=== PATIENT | female | born 1995 | race Caucasian/White ===

== ENCOUNTER 2018-06-04 14:55 | Emergency (ER) | payer OTHER ==
[~2018-06-04] VITALS: Ht 167.6 cm; Wt 73.6 kg
[2018-06-04] MEDS ORDERED: ONDANSETRON 2MG/ML, 2ML IVPush ONE (15:30)
[2018-06-04] MEDS ORDERED: SODIUM CHLORIDE FLUSH 10ML SYR IVF ONE (15:30)
[2018-06-04] MEDS ORDERED: MAALOX/HYOSCYAMINE/LIDOCAINE 45 ML BTL PO ONE (15:30)
[2018-06-04] MEDS ORDERED: FAMOTIDINE 20 MG/2 ML IVP ONE (15:30)
[2018-06-04] MEDS ORDERED: SODIUM CHLORIDE 0.9% 1,000ML IVBOLUS ONE ×2 (15:30→17:30)
[2018-06-04 15:42] LABS: ALANINE AMINOTRANSFERASE 18 U/L (12-78); ALBUMIN 3.3 g/dL (3.4-5.0); ANION GAP 7 mmol/L (5-15); CALCIUM 8.5 mg/dL (8.5-10.1); CHLORIDE 110 mmol/L (98-107); CREATININE 0.89 mg/dL (0.55-1.02)
[2018-06-04 15:47] LABS: ALKALINE PHOSPHATASE 47 U/L (45-117); BILIRUBIN,TOTAL 0.6 mg/dL (0.2-1.0); TOTAL PROTEIN 7.2 g/dL (6.4-8.2)
[2018-06-04] MEDS ORDERED: ONDANSETRON 2MG/ML, 2ML ONE (15:52)
[2018-06-04] MEDS ORDERED: MAALOX/HYOSCYAMINE/LIDOCAINE 45 ML BTL ONE (15:52)
[2018-06-04] MEDS ORDERED: FAMOTIDINE 20 MG/2 ML ONE (15:52)
[2018-06-04] MEDS ORDERED: PLEASE ENTER ALLERGIES MC SCH (16:00)
[2018-06-04 16:01] LABS: MEAN CORPUSCULAR HEMOGLOBIN 29.4 pg (27.0-34.8); MEAN CORPUSCULAR HGB CONC 33.9 g/dL (32.4-35.8); MEAN CORPUSCULAR VOLUME 86.9 fL (80-100); MEAN PLATELET VOLUME 10.3 fL (7.4-10.4); PLATELET COUNT 101 x10^3/uL (130-400); RED BLOOD COUNT 4.89 x10^6/uL (3.82-5.3); RED CELL DISTRIBUTION WIDTH 12.7 % (9.6-15.2)
[2018-06-04 16:17] LABS: MD YES
[2018-06-04] MEDS ORDERED: NORG1TAB6 PO (16:21)
[2018-06-04] MEDS ORDERED: CITA20TA9 PO (16:22)
[2018-06-04] MEDS ORDERED: FLUT9.9S NAS (16:22)
[2018-06-04] MEDS ORDERED: CETI10TA18 PO (16:23)
[2018-06-04 16:24] LABS: <PLATELET ESTIMATE> DECREASED; <PLT MORPHOLOGY> NORMAL PLT MORPH; <RBC MORPHOLOGY> NORMAL; BAND#(MANUAL) 0.32 x10^3/uL; BANDS%(MANUAL) 4 % (0-7); LYMPH#(MANUAL) 0.64 x10^3/uL (1-3.4); LYMPHS% (MANUAL) 8 % (22-44); MONOS#(MANUAL) 0.16 x10^3/uL (0.3-2.7); MONOS% (MANUAL) 2 % (2-9); SEG#(MANUAL) 6.88 x10^3/uL (1.8-6.8); SEGS% (MANUAL) 86 % (42-75)
[2018-06-04 17:18] LABS: MICROSCOPIC NOT IND
[2018-06-04 17:21] LABS: CULTURE INDICATED? NO
[2018-06-04 17:38] VITALS: BP 111/77
== END 2018-06-04 17:40 | disposition home or self-care (01) ==
LOC: ED 17:24
DX: K52.9 Noninfective gastroenteritis and colitis, unspecified (principal)
CPT/HCPCS: 36415; 76700; 80053; 81003; 83690; 84703; 85025; 96361; 96374; 96375; 99285; J2405; J7030; S0028